=== PATIENT | female | born 1990 | race Caucasian/White ===

== ENCOUNTER 2018-12-21 01:05 | Emergency (ER) | payer MEDICAID, OTHER ==
[~2018-12-21] VITALS: Ht 165.1 cm; Wt 83.9 kg
[2018-12-21 01:05] VITALS: BP 102/56
[~2018-12-21 01:05] MED LIST: ALBU-136 IH; ALPR0.5T2 PO
--- NOTE | 2018-12-21 01:05 | NUR ---
PT ARLIN ALS. TAKEN TO BED 5
--- NOTE | 2018-12-21 01:16 | NUR ---
PT BIBA ALS, C/O ETOH INTOXICATION. PT RESPONDS TO VOICE. PT STATES ONLY MEDICAL HISTORY IS ASTHMA. PT VOMITED AT HOME AND RECEIVED ZOFRAN EN ROUTE TO HOSPITAL. 20G IV TO RIGHT AC. SKIN IS PINK/WARM/DRY; LUNGS CLEAR BL; HR EVEN AND REGULAR; FLACC PAIN LEVEL 0/10 AT THIS TIME; VSS; PATIENT POSITIONED FOR COMFORT; HOB ELEVATED; BEDRAILS UP X2; BED DOWN. ER MD MADE AWARE OF PT STATUS.
--- NOTE | 2018-12-21 02:05 | NUR ---
FAMILY MEMBER AT BEDSIDE. PT RESTING, NO SIGNS OF DISTRESS NOTED.
--- NOTE | 2018-12-21 03:00 | NUR ---
Dr. Acharya evaluating patient at bedside.
[2018-12-21 03:25] VITALS: BP 116/68
--- NOTE | 2018-12-21 03:25 | NUR ---
Patient discharged with v/s stable. Written and verbal after care instructions given and explained. Patient verbalized understanding. Ambulatory with steady gait. All questions addressed prior to discharge. Advised to follow up with PMD.
== END 2018-12-21 03:25 | disposition home or self-care (01) ==
LOC: MED 01:05
DX: F10.129 Alcohol abuse with intoxication, unspecified (principal); R11.2 Nausea with vomiting, unspecified; J45.909 Unspecified asthma, uncomplicated; Z90.49 Acquired absence of other specified parts of digestive tract; Z79.899 Other long term (current) drug therapy; Z88.6 Allergy status to analgesic agent; Z88.5 Allergy status to narcotic agent; Y90.9 Presence of alcohol in blood, level not specified
CPT/HCPCS: 99283

== ENCOUNTER 2020-05-19 21:02 | Emergency (ER) | payer OTHER ==
[~2020-05-19] VITALS: Ht 167.6 cm; Wt 90.7 kg
[2020-05-19 21:09] VITALS: BP 131/85
--- NOTE | 2020-05-19 21:17 | NUR ---
PT AMBULATED TO BED 3 WITH STEADY GAIT
--- NOTE | 2020-05-19 21:18 | NUR ---
29 Y/O FEMALE C/O LUMP ON RIGHT UPPER SHOULDER AREA X 1 MONTHS THAT STARTED TO FEEL MORE PAINFUL AFTER WAS FEELING IT LAST NIGHT TO SEE IF IT HAD GROWN IN SIZE; LUMP TENDER TO TOUCH; DENIES N/V/D; SKIN IS PINK/WARM/DRY; AAOX4 WITH EVEN AND STEADY GAIT; HR EVEN AND REGULAR; PT DENIES ANY FEVER, CP, SOB, OR COUGH AT THIS TIME; PATIENT STATES PAIN OF 9/10 AT THIS TIME; VSS; PATIENT POSITIONED FOR COMFORT; HOB ELEVATED; BEDRAILS UP X2; BED DOWN AND LOCKED. PMH:GALLBLADDER SURGERY//ASTHMA NKA
--- NOTE | 2020-05-19 21:20 | NUR ---
LISSA TOM AT BEDSIDE
[2020-05-19] MEDS ORDERED: KETOROLAC 30 MG/ML VIAL IM ONE (21:25)
--- NOTE | 2020-05-19 21:30 | NUR ---
LISSA TOM CANCELLED URINE DIP/PREG
[2020-05-19 21:40] VITALS: BP 131/85
--- NOTE | 2020-05-19 21:40 | NUR ---
Patient discharged with v/s stable. Written and verbal after care instructions given and explained. Patient alert, oriented and verbalized understanding of instructions. Ambulatory with steady gait. All questions addressed prior to discharge. ID band removed. Patient advised to follow up with PMD. Rx of ACETAMINOPHEN/IBUPROFEN given. Patient educated on indication of medication including possible reaction and side effects. Opportunity to ask questions provided and answered.
== END 2020-05-19 21:40 | disposition home or self-care (01) ==
LOC: MED 21:02
DX: L72.0 Epidermal cyst (principal); J45.909 Unspecified asthma, uncomplicated; Z79.899 Other long term (current) drug therapy
CPT/HCPCS: 96372; 99283; J1885